=== PATIENT | female | born 1990 | race Two or more races ===

== ENCOUNTER 2022-02-24 10:09 | Outpatient (CLI) | payer OTHER | END 2022-02-24 12:08 | disposition home or self-care (01) | LOC: PRENATAL 10:09 | PROVIDERS: ATTEND Obstetrics & Gynecology Maternal & Fetal Medicine | DX: O36.80X0 Pregnancy with inconclusive fetal viability, not applicable or unspecified (principal); Z36 Encounter for antenatal screening of mother ==

== ENCOUNTER 2022-04-20 12:37 | Outpatient (CLI) | payer OTHER | END 2022-04-20 14:45 | disposition home or self-care (01) | LOC: PRENATAL 12:37 | PROVIDERS: ATTEND Obstetrics & Gynecology Maternal & Fetal Medicine | DX: O35.3XX0 Maternal care for (suspected) damage to fetus from viral disease in mother, not applicable or unspecified (principal); O35.9XX0 Maternal care for (suspected) fetal abnormality and damage, unspecified, not applicable or unspecified; Z3A.20 20 weeks gestation of pregnancy ==

== ENCOUNTER 2022-07-13 14:02 | Outpatient (CLI) | payer OTHER | END 2022-07-13 15:45 | disposition home or self-care (01) | LOC: PRENATAL 14:02 | PROVIDERS: ATTEND Obstetrics & Gynecology Maternal & Fetal Medicine | DX: O26.849 Uterine size-date discrepancy, unspecified trimester (principal); O24.419 Gestational diabetes mellitus in pregnancy, unspecified control; O36.8199 Decreased fetal movements, unspecified trimester, other fetus; Z3A.32 32 weeks gestation of pregnancy ==

== ENCOUNTER 2022-08-10 11:14 | Outpatient (CLI) | payer OTHER | END 2022-08-10 13:32 | disposition home or self-care (01) | LOC: PRENATAL 11:14 | PROVIDERS: ATTEND Obstetrics & Gynecology Maternal & Fetal Medicine | DX: O26.849 Uterine size-date discrepancy, unspecified trimester (principal); O24.419 Gestational diabetes mellitus in pregnancy, unspecified control; O36.8199 Decreased fetal movements, unspecified trimester, other fetus; Z3A.36 36 weeks gestation of pregnancy ==

== ENCOUNTER → 2022-08-16 | Outpatient (CLI) | payer OTHER | END | disposition home or self-care (01) | LOC: NST 11:25 | PROVIDERS: ATTEND Obstetrics & Gynecology | DX: Z34.83 Encounter for supervision of other normal pregnancy, third trimester (principal) ==

== ENCOUNTER 2022-08-28 09:16 | Inpatient (IN) | payer OTHER ==
[~2022-08-28] VITALS: Ht 165.1 cm; Wt 99.8 kg
[2022-08-28] MEDS ORDERED: PRENATABS RX T1 EACH PO (09:20)
== END 2022-08-30 11:53 | disposition home or self-care (01) | DRG 807 ==
LOC: LDR → OB/GYN 09:16 → LDR 09:16 → OB/GYN 13:58 → LDR 09-04 14:50
PROVIDERS: ADMIT Obstetrics & Gynecology; ATTEND Obstetrics & Gynecology
PROC: 10E0XZZ Delivery of Products of Conception, External Approach (ICD-10-PCS; principal; 2022-08-28)
PROC: 0KQM0ZZ Repair Perineum Muscle, Open Approach (ICD-10-PCS; 2022-08-28)
PROC: 4A1HXCZ Monitoring of Products of Conception, Cardiac Rate, External Approach (ICD-10-PCS; 2022-08-28)
DX: O70.1 Second degree perineal laceration during delivery (principal); Z37.0 Single live birth; Z3A.39 39 weeks gestation of pregnancy; Z20.822 Contact with and (suspected) exposure to COVID-19

== ENCOUNTER 2024-06-12 09:05 | Outpatient (CLI) | payer OTHER ==
[~2024-06-12 09:05] MED LIST: PRENATABS RX T1 EACH PO
== END 2024-06-12 09:06 | disposition home or self-care (01) ==
LOC: PRENATAL 09:05
PROVIDERS: ATTEND Obstetrics & Gynecology Maternal & Fetal Medicine
DX: O36.80X0 Pregnancy with inconclusive fetal viability, not applicable or unspecified (principal); O09.529 Supervision of elderly multigravida, unspecified trimester; Z36.82 Encounter for antenatal screening for nuchal translucency; Z3A.12 12 weeks gestation of pregnancy

== ENCOUNTER → 2024-08-03 13:01 | Outpatient (CLI) | payer OTHER | END | disposition home or self-care (01) | LOC: PRENATAL 13:01 | PROVIDERS: ATTEND Obstetrics & Gynecology Maternal & Fetal Medicine | DX: O44.00 Complete placenta previa NOS or without hemorrhage, unspecified trimester (principal); O09.529 Supervision of elderly multigravida, unspecified trimester; Z3A.20 20 weeks gestation of pregnancy ==

== ENCOUNTER 2024-10-05 12:51 | Outpatient (CLI) | payer OTHER | END 2024-10-05 12:53 | disposition home or self-care (01) | LOC: PRENATAL 12:51 | PROVIDERS: ATTEND Obstetrics & Gynecology Maternal & Fetal Medicine | DX: O26.849 Uterine size-date discrepancy, unspecified trimester (principal); O09.529 Supervision of elderly multigravida, unspecified trimester; O24.419 Gestational diabetes mellitus in pregnancy, unspecified control; Z3A.29 29 weeks gestation of pregnancy ==

== ENCOUNTER → 2024-11-07 09:56 | Outpatient (CLI) | payer OTHER | END | disposition home or self-care (01) | LOC: PRENATAL 09:56 | PROVIDERS: ATTEND Obstetrics & Gynecology Maternal & Fetal Medicine | DX: O26.849 Uterine size-date discrepancy, unspecified trimester (principal); O36.8199 Decreased fetal movements, unspecified trimester, other fetus; O09.529 Supervision of elderly multigravida, unspecified trimester; O24.419 Gestational diabetes mellitus in pregnancy, unspecified control; Z3A.33 33 weeks gestation of pregnancy ==

== ENCOUNTER 2024-12-01 11:00 | Inpatient (IN) | payer OTHER ==
[~2024-12-01] VITALS: Ht 165.1 cm; Wt 99.3 kg
[2024-12-01 11:56] LABS: BASO % 0.3 % (0.1-1.2); EOS # 0.14 (0.04-0.54); EOS % 1.1 % (0.7-7.0); LYMPH # 2.34 (1.18-3.74); LYMPH % 19.1 % (19.3-53.1); MEAN PLATELET VOLUME 11.90 fl (9.4-12.4); MONO # 0.65 (0.24-0.82); MONO % 5.3 % (4.7-12.5); NEUT # 8.99 (1.56-6.13); NEUT % 73.7 % (34.0-71.1); RED CELL DISTRIBUTION WIDTH 12.9 % (11.6-14.4)
[2024-12-01 11:57] LABS: URINE APPEARANCE Cloudy; URINE BILIRRUBIN Negative (NEGATIVE); URINE BLOOD Negative; URINE COLOR Yellow; URINE GLUCOSE Negative (NEGATIVE); URINE KETONE Trace (NEGATIVE); URINE LEUKOCYTE Moderate; URINE NITRATE Negative; URINE PROTEIN Negative (NEGATIVE); URINE UROBILINOGEN 1.0 E.U./dl
[2024-12-01 11:59] LABS: URINE BACTERIA 6259.1 uL (0.0-1933); URINE EPITHELIAL CELLS 144.6 uL (0.0-38.8); URINE RBC 5.4 uL (0.0-20.8); URINE WBC 175.5 uL (0.0-23.2)
[2024-12-01 12:08] LABS: URINE CAST 0.43 uL (0.0-1.40)
[2024-12-01 12:27] LABS: URINE YEAST FEW /hpf
[2024-12-01 12:38] LABS: INR 0.94
[2024-12-01 12:47] LABS: ALT/SGPT 18.0 U/L (12-78); AST/SGOT 13.0 U/L (15-37); BILIRUBIN TOTAL 0.49 mg/dL (0.3-1.2); BUN CREA RATIO 14.0 (7.0-25.0); CREATININE SERUM 0.59 mg/dL (0.55-1.02); GFR 115.33; GLOBULINA 3.4 G/DL (2.4-3.5); GLUCOSE FASTING 73.0 mg/dL (65-100); OSMOLALITY SERUM 276.0 MOSM/KG (275-295)
[2024-12-12 23:50] VITALS: BP 128/67
[2024-12-13] VITALS (10 sets, daily range): BP systolic 98–128; BP diastolic 45–74
[2024-12-13] MEDS ORDERED: RINGERS SOLUTION,LACTATED 1,000 ML IV SCH (00:45)
[2024-12-13] MEDS ORDERED: CLINDAMYCIN PHOSPHATE 150 MG/ML (900mg) IV SCH (01:00)
[2024-12-13] MEDS ORDERED: HUMULIN N100 UNIT/2 SUBCUTANEO (02:21)
[2024-12-13] MEDS ORDERED: ADULT LOW DOSE81 M1 PO (02:22)
[2024-12-13] MEDS ORDERED: OXYTOCIN 500 ML IV SCH (10:15)
[2024-12-13] MEDS ORDERED: BENZOCAINE/MENTHOL 90 ML BOTTLE TOP PRN (13:45)
[2024-12-13] MEDS ORDERED: OXYTOCIN 1,000 ML IV SCH (13:45)
[2024-12-13] MEDS ORDERED: ACETAMINOPHEN 500 MG GEL..CAP PO PRN (13:45)
[2024-12-13] MEDS ORDERED: LIDOCAINE HCL 1% 10ML VIAL IJ ONE (14:00)
[2024-12-13] MEDS ORDERED: CHLORHEXIDINE GLUCONATE 120 ML BOTTLE TOP ONE (14:00)
[2024-12-13] MEDS ORDERED: ERYTHROMYCIN BASE OPHT 1GM EACH TUBE OP ONE (14:00)
[2024-12-14] VITALS: BP 101/61
[2024-12-14 06:14] LABS: BASO % 0.7 % (0.1-1.2); EOS # 0.10 (0.04-0.54); EOS % 1.2 % (0.7-7.0); LYMPH # 1.81 (1.18-3.74); LYMPH % 21.0 % (19.3-53.1); MEAN PLATELET VOLUME 12.20 fl (9.4-12.4); MONO # 0.61 (0.24-0.82); MONO % 7.1 % (4.7-12.5); NEUT # 6.00 (1.56-6.13); NEUT % 69.7 % (34.0-71.1); RED CELL DISTRIBUTION WIDTH 13.4 % (11.6-14.4)
[2024-12-14] MEDS ORDERED: PNV,CALCIUM 72/IRON/FOLIC ACID 1 TAB TABLET PO SCH (09:00)
[2024-12-14 09:09] VITALS: BP 114/72; O2SAT 100
[2024-12-14] MEDS ORDERED: MEASLES,MUMPS,RUBELLA VACC/PF 1 VIAL VIAL SUBCUTANEO NR (13:45)
[2024-12-14 16:52] VITALS: BP 119/69
[2024-12-15 02:11] VITALS: BP 115/74
[2024-12-15 08:00] VITALS: BP 106/67
== END 2024-12-15 13:51 | disposition home or self-care (01) | DRG 807 ==
LOC: LDR 12-13 00:28 → OB/GYN 12-13 13:26 → LDR 12-18 11:00
PROVIDERS: Obstetrics & Gynecology; ADMIT Student in an Organized Health Care Education/Training Program; ATTEND Student in an Organized Health Care Education/Training Program
PROC: 10E0XZZ Delivery of Products of Conception, External Approach (ICD-10-PCS; principal; 2024-12-13)
PROC: 0HQ9XZZ Repair Perineum Skin, External Approach (ICD-10-PCS; 2024-12-13)
PROC: 4A1HXCZ Monitoring of Products of Conception, Cardiac Rate, External Approach (ICD-10-PCS; 2024-12-13)
DX: O70.0 First degree perineal laceration during delivery (principal); Z37.0 Single live birth; Z3A.38 38 weeks gestation of pregnancy